=== PATIENT | male | born 1950 | race Caucasian/White ===

== ENCOUNTER → 2017-09-24 | Outpatient (CLI) | payer OTHER ==
[~2017-09-24] MED LIST: ADULT LOW DOSE81 MG PO; ADVAIR HFA 1112 UNIT IH; ADVAIR HFA 230M1 AER INH; ADVAIR INH; AVELOX 400 MG400 MG PO; AZITHROMYCIN250 MG PO; COMBIVENT IN; COMBIVENT INH; CYMBALTA30 MG PO; FISH OIL 1,2001 EAC1 PO; HYDROCODON-ACE1 EAC5 PO; MULTIVITAMINS PO; MYCELEX PO; NEURONTIN 300M300 M2 PO; PERCOCET PO; PREDNISONE 10 M10 M1 PO; SPIRIVA IH; ZOCOR 20 MG TAB20 M1 PO; ZOCOR 20 MG TAB20 MG PO
== END ==
LOC: RAD 08:13
DX: R05 Cough (principal); R06.00 Dyspnea, unspecified

== ENCOUNTER → 2017-11-23 | Outpatient (CLI) | payer OTHER | LOC: RAD 15:53 | DX: J44.9 Chronic obstructive pulmonary disease, unspecified (principal) ==

== ENCOUNTER → 2017-12-02 | Outpatient (CLI) | payer OTHER | LOC: RAD 12:05 | DX: J44.0 Chronic obstructive pulmonary disease with (acute) lower respiratory infection (principal); J18.9 Pneumonia, unspecified organism ==

== ENCOUNTER → 2017-12-07 | Outpatient (CLI) | payer OTHER | LOC: RAD 10:10 | DX: J18.1 Lobar pneumonia, unspecified organism (principal) ==

== ENCOUNTER → 2017-12-23 | Outpatient (CLI) | payer OTHER | LOC: RAD 12:49 | DX: J44.9 Chronic obstructive pulmonary disease, unspecified (principal) ==

== ENCOUNTER → 2017-12-30 | Outpatient (CLI) | payer OTHER | LOC: RAD 14:00 | DX: J18.9 Pneumonia, unspecified organism (principal) ==

== ENCOUNTER → 2017-12-31 | Outpatient (CLI) | payer OTHER ==
[2017-12-31 09:20] LABS: CREATININE 1.1 mg/dL (0.7-1.3)
== END ==
LOC: LABMALL 08:52 → CAT 08:52
PROVIDERS: Internal Medicine
DX: J18.9 Pneumonia, unspecified organism (principal)

== ENCOUNTER → 2018-01-04 | Outpatient (CLI) | payer OTHER ==
--- NOTE | ~2018-01-04 | P ---
[facility] Donn Hector [facility] [employer] ([facility] [place] [address] PROCEDURE REPORT Name: JENY REARDON Room #: REG CLI [facility].#: [id number] Admission: 01/04/18 Attend Phys: Michael Lisa MD Discharge: Date of : 48 Report #: [id number] THIS REPORT FOR: //name// CC: Michael Garcia DATE OF SERVICE: 01/04/2018 PROCEDURE: Fiberoptic bronchoscopy with bronchioalveolar lavage in the left lower lobe and microscopic brush in the superior segment of left lower lobe. INDICATION: Persistent infiltrate. ASA classification class II. PROCEDURE NOTATION: After evaluating the patient and discussing risks, benefits of planned procedure with the patient, he desired to proceed. After obtaining informed consent, he was in greens laborer 3 where he was placed on continuous cardiopulmonary monitoring and supplemental oxygen, then given 4% lidocaine nebulized to anesthetize the upper respiratory tract. Once accomplished, he received conscious sedation. A total of 3 mg Versed and 25 mcg of fentanyl were titrated during the procedure for adequate sedation. Once accomplished, bronchoscope was passed through an oral biteblock until the vocal cords were visualized. Vocal cords moved appropriately both before and after the procedure. 1% lidocaine was instilled in vocal cords to provide topical anesthesia. Bronchoscope was then passed in the trachea, 1% lidocaine was instilled in the tracheobronchial tree bilaterally to provide topical anesthesia. Once complete, airways were surveyed. FINDINGS: Mainstem lower segmental and subsegmental bronchi were explored and appeared patent with no significant anatomic variation. There was some diffuse erythema of the airways with no significant endobronchial disease. Some mucus plugging noted in the superior segment of the left lower lobe where a protected specimen brush was obtained and sent for quantitative culture. Bronchial lavage was then performed in the left lower lobe and sent for microbiologic and cytologic tests. The patient tolerated it well. No noted complications. IMPRESSION: Persistent pulmonary infiltrates, status post bronchoscopy with bronchioalveolar lavage and microscopic brush. PLAN: Await microbiologic and cytologic tests. By: [id number] Michael Lisa MD /nt
--- NOTE | ~2018-01-04 | CNG ---
[facility] [place] [address] CYTO-NONGYN REPORT PROCEDURE Name: FELIPE REARDON Room #: REG CLI ..#: [id number] Admission: 01/04/18 Date of : 48 Discharge: Report #: [id number] Path Case #: [id number] CYTOPATHOLOGY REPORT COLLECTION DATE: 01/04/2018 RECEIVED DATE: 01/04/2018 SUBMITTING PHYS: Dr. Michael Lisa OTHER PHYS: Dr. Eric Winston CLINICAL HISTORY: Hemoptysis, abnormal CT SPECIMEN(S) RECEIVED: A.Bronchoalveolar lavage, LLL * * * * * * * * * * * * FINAL DIAGNOSIS: A. Lung, LLL, Bronchoalveolar lavage: - No malignant cells identified. Rare reactive bronchial epithelial cells, alveolar macrophages, squamous cells present along with acute and chronic inflammatory cells present. PATHOLOGIST: Paloma Arriaza M.D. REPORT ELECTRONICALLY SIGNED BY: Paloma Arriaza M.D. DATE/TIME: 01/05/2018 13:02 * * * * * * * * * * * * GROSS PATHOLOGY: A. Bronchoalveolar lavage, LLL: The specimen is submitted unfixed, labeled "Felipe Reardon". Received by the Cytology Department is 16 mL of cloudy pink fluid. One ThinPrep slide was prepared. (mm 01.04.2018) BOARD RUNNER(S): Carlton Fontaine CT([facility]) INITIAL CPT CODE(S): A; 90565 Professional services performed by [facility] at [facility] [address], [place] [address] Technical services performed by [facility] at [address] [place] [address]., [address], [place] [address]. [facility] [address] [place] [address], [facility] [address] [place], [place] [id number] [place] [address] [place] [address] CYTO-NONGYN REPORT PROCEDURE Name: CARONFELIPE AMI Room #: REG CLI [facility].#: [id number] Admission: 01/04/18 Date of : 48 Discharge: Report #: [id number] Path Case #: [id number] PHONE: [phone] DIRECTOR: Alden Irwin M.D. * * * END OF REPORT * * *
== END | disposition home or self-care (01) ==
LOC: CATH 08:12
DX: J42 Unspecified chronic bronchitis (principal); Z79.82 Long term (current) use of aspirin; Z79.891 Long term (current) use of opiate analgesic; Z79.899 Other long term (current) drug therapy

== ENCOUNTER → 2018-03-15 | Outpatient (CLI) | payer OTHER | LOC: RAD 09:40 | DX: R91.8 Other nonspecific abnormal finding of lung field (principal) ==

== ENCOUNTER → 2018-09-16 | Outpatient (CLI) | payer OTHER | LOC: RAD 10:20 | DX: J98.4 Other disorders of lung (principal); I77.810 Thoracic aortic ectasia; M43.8X4 Other specified deforming dorsopathies, thoracic region ==

== ENCOUNTER → 2020-08-21 | Outpatient (CLI) | payer OTHER | LOC: RAD 14:50 | PROVIDERS: ATTEND Internal Medicine | DX: J43.9 Emphysema, unspecified (principal); J98.4 Other disorders of lung ==